=== PATIENT | male | born 1965 | race Caucasian/White ===

== ENCOUNTER 2019-12-28 10:17 | Emergency (ER) | payer MEDICARE, SELFPAY ==
--- NOTE | 2019-12-28 10:26 | ED.SKABFB ---
HPI - Skin/Abscess/Foreign Bdy General Chief complaint: Skin/Abscess/Foreign Body Stated complaint: pos skin infection Time Seen by Provider: 12/28/19 10:26 Source: patient Mode of arrival: ambulatory Limitations: no limitations History of Present Illness HPI narrative: A 54 y/o male, who is a smoker/nondrinker on sev oral meds -inc for AODM . presents to with c/o redness and swelling to his left thumb and left great toe for 10 days. Pt states that he tried to open up the area on his thumb but denies drainage from the area. Pt has a PMHx of DM and notes that he was recently on Penicillin for skin ulcers. Onset (ago): day(s) (10) Location: L hand (thumb) and L foot (great toe) Related Data Home Medications Medication Instructions Recorded Confirmed atorvastatin 20 mg PO DAILY 12/28/19 12/28/19 hydrochlorothiazide 25 mg PO DAILY 12/28/19 12/28/19 lisinopril 40 mg PO DAILY 12/28/19 12/28/19 metformin 500 mg PO BID 12/28/19 12/28/19 sertraline 100 mg PO DAILY 12/28/19 12/28/19 Allergies Allergy/AdvReac Type Severity Reaction Status Date / Time No Known Allergies Allergy Mild Unverified 12/28/19 10:25 Review of Systems Review of Systems: Narrative: General/Constitutional: Denies: weight loss,fever Eyes: Denies: Redness,discharge Ears/Nose/Throat: Denies: Epistaxis,ear discharge Respiratory: Denies: Hemoptysis Gastrointestinal: Denies: Vomiting, Bleeding-rectal Skin: Reports: swelling and redness to left thumb and left great toe; Denies: drainage Neurologic: Denies: Focal Weakness,Sz Hematologic: Denies: Petechiae/Purpura Psychiatric: Denies: Suicidal ideation All systems reviewed & are unremarkable except as noted in HPI and below PMFSH Past Medical History Medical History Depression Diabetes Diverticulitis History of open sigmoidectomy with colostomy HTN (hypertension) Pneumonia Right hand fracture Skin ulcer Surgical History Surgical History Hx of colostomy sigmoid Social History Social History (Updated 12/28/19 @ 10:45 by Duyen Vanegas Smoking status: Current every day smoker Alcohol intake: never Comments PCP: Dr. Schilling At time of signature, agree with nursing past medical, surgical, social and family history. There is no relevant family history pertinent to the presenting complaint Exam Narrative: Exam Narrative: General Appearance: Well appearing, No distress EYE: PERRLA, Conjunctiva clear Ears: External ear normal Nose: Normal nose Mouth/Throat: Normal appearing, Normal lips Neck: Supple Respiratory: Airway patent, No respiratory distress Musculoskeletal: Full ROM, Bilateral follicular changes on forearms Skin: Warm, Dry, paronychia of L great toe and thumb w/o abscess, streaking Neurological: A&O x3, CN II-X intact Psychiatric: Normal mood, Normal affect Course Vital Signs Vital signs: Vital Signs Temperature 97.8 F 12/28/19 10:29 Pulse Rate 80 12/28/19 10:29 Respiratory Rate 16 12/28/19 10:29 Blood Pressure 153/91 H 12/28/19 10:29 Pulse Oximetry 100 12/28/19 10:29 Temperature 97.8 F 12/28/19 10:29 Pulse Rate 80 12/28/19 10:29 Respiratory Rate 16 12/28/19 10:29 Blood Pressure 153/91 H 12/28/19 10:29 Pulse Oximetry 100 12/28/19 10:29 Discharge Plan Discharge Clinical Impression: Paronychia, Acute paronychia of left thumb Patient Disposition: Home, Self-Care Condition: Stable Instructions: Antibiotic Form, Paronychia (ED) Prescriptions: New clindamycin HCl 300 mg capsule 300 mg PO TID Qty: 15 RF: 0 mupirocin 2 % ointment 1 applic TOPICAL TID Qty: 30 RF: 0 No Action metformin 500 mg tablet 500 mg PO BID RF: 0 atorvastatin 20 mg tablet 20 mg PO DAILY RF: 0 sertraline 100 mg tablet 100 mg PO DAILY RF: 0 hydrochlorothiazide 25 mg tablet 25 mg PO DAILY RF
[2019-12-28 10:29] VITALS: BP 153/91; PULSE 80; RESP 16; TEMP 36.6; O2SAT 100
== END 2019-12-28 10:59 | disposition home or self-care (01) ==
PROVIDERS: Emergency Provider Emergency Medicine; PCP Family Medicine
DX: L03.012 Cellulitis of left finger (principal); F17.200 Nicotine dependence, unspecified, uncomplicated; F32.9 Major depressive disorder, single episode, unspecified; E11.9 Type 2 diabetes mellitus without complications; I10 Essential (primary) hypertension
CPT/HCPCS: 99213; G0463

== ENCOUNTER 2021-08-26 11:24 | Outpatient (CLI) | payer MEDICARE, SELFPAY ==
--- NOTE | ~2021-08-26 | XR_ITS ---
EXAMINATION: XR hand LT min 3V INDICATION: Left hand pain TECHNIQUE: Three views of the left hand are obtained. COMPARISON: None available FINDINGS: There is no fracture, dislocation, or subluxation. The bones, soft tissues, and joint space s are normal. IMPRESSION: 1. No acute osseous abnormality. Reviewed, dictated and finalized at location A.
== END 2021-08-26 11:25 | disposition home or self-care (01) ==
PROVIDERS: PCP Family Medicine; Visit Provider Family Medicine
DX: M79.642 Pain in left hand (principal)
CPT/HCPCS: 73130

== ENCOUNTER 2024-03-28 14:03 | Emergency (ER) | payer MEDICARE, SELFPAY ==
--- NOTE | ~2024-03-28 | XR_ITS ---
EXAMINATION: XR finger 3rd RT min 2V DATE: 03/28/2024 17:12 INDICATION: Laceration to tip of the right third digit after being slammed in a door. TECHNIQUE: Dorsal palmar, lateral and oblique views of the right digit were obtained COMPARISON: None FINDINGS: Nondisplaced oblique fracture extending across the tuft of the right third distal phalanx. No other f ractures identified. Joint spaces are normal. Soft tissue swelling about the third digit most promine nt distally and about the proximal interphalangeal joint. No radiopaque foreign bodies. IMPRESSION: 1. Nondisplaced fracture at the tuft of the right third distal phalanx which could be open/compound g iven the provided history of laceration in this region. Reviewed, dictated and finalized at location A. IMPRESSION: 1. Nondisplaced fracture at the tuft of the right third distal phalanx which co uld be open/compound given the provided history of laceration in this region.
[2024-03-28 14:03] VITALS: BP 185/102; PULSE 87; RESP 16; TEMP 36.8; O2SAT 99
[2024-03-28 14:40] VITALS: BP 126/72; PULSE 86; RESP 18; TEMP 36.3; O2SAT 95
--- NOTE | 2024-03-28 16:59 | ED.WOUNDLAC ---
HPI - Wound/Laceration General Chief Complaint: Wound/Laceration Stated Complaint: lac Time Seen by Provider: 03/28/24 16:12 Source: patient Mode of arrival: ambulatory Limitations: no limitations History of Present Illness HPI narrative: Patient is a 59-year-old male who presents the ED with report of a laceration to his right 3rd digit. Patient reports he accidentally slammed his finger in the hinge of a door. Sustained a laceration. Denies any other injuries. Denies numbness. Tetanus unknown. Related Data Home Medications Medication Instructions Recorded Confirmed atorvastatin 20 mg tablet 20 mg PO DAILY 12/28/19 12/28/19 hydrochlorothiazide 25 mg tablet 25 mg PO DAILY 12/28/19 12/28/19 lisinopril 40 mg tablet 40 mg PO DAILY 12/28/19 12/28/19 metformin 500 mg tablet 500 mg PO BID 12/28/19 12/28/19 sertraline 100 mg tablet 100 mg PO DAILY 12/28/19 12/28/19 Allergies Allergy/AdvReac Type Severity Reaction Status Date / Time No Known Allergies Allergy Mild Verified 03/28/24 14:05 Review of Systems Review of Systems: CONSTITUTIONAL: Denies fever, chills, or sweats. MUSCULOSKELETAL: See HPI. NEUROLOGIC: Denies headache, dizziness, numbness, or weakness. All systems reviewed & are unremarkable except as noted in HPI and below PMFSH Past Medical History Medical History Depression Diabetes Diverticulitis History of open sigmoidectomy with colostomy HTN (hypertension) Pneumonia Right hand fracture Skin ulcer Surgical History Surgical History Hx of colostomy sigmoid Social History Social History Smoking status: Current every day smoker Alcohol intake: never Exam Narrative: GENERAL: Appears older than stated age, obese with BMI of 34.2, non-toxic, in no acute distress. HEAD: Normocephalic, atraumatic. RESPIRATORY: Airway patent, respirations nonlabored. CARDIOVASCULAR: Regular rate and rhythm. Radial pulses intact bilaterally. MUSCULOSKELETAL: Moves all extremities. No gross deformities. SKIN: Warm, dry, normal color. Approximately 3 cm curvilinear laceration to right 3rd digit finger pad on flexor surface, ending next to lateral nail plate edge. No significant active bleeding. Sensation intact. NEURO: A&O X3. Speech clear. PSYCHIATRIC: Appropriate mood and affect. Normal interaction. Course Vital Signs Vital signs: Vital Signs Temperature 98.2 F 03/28/24 14:03 Pulse Rate 87 03/28/24 14:03 Respiratory Rate 16 03/28/24 14:03 Blood Pressure 185/102 H 03/28/24 14:03 Pulse Oximetry 99 03/28/24 14:03 Temperature 97.3 F L 03/28/24 14:40 Pulse Rate 86 03/28/24 14:40 Respiratory Rate 18 03/28/24 14:40 Blood Pressure 126/72 03/28/24 14:40 Pulse Oximetry 95 03/28/24 14:40 Procedures Laceration Laceration 1: Date: 03/28/24 Time: 17:45 Site: hand Side (If applicable): right (3rd digit) Size (cm): 3 Description: linear Depth: simple, single layer Local Anesthetic: other anesthetic (digital block) Pre-repair: wound explored, irrigated and irrigated extensively ====== Skin Level ====== Skin layer closed with: nylon Size (cm): 4-0 Number of sutures: 9 Technique: simple, interrupted ====== Subcutaneous Layer ====== ====== Muscle Layer ====== ====== Tendon Layer ====== Nerve Block Nerve Block 1: Nerve block date: 03/28/24 Nerve block time: 17:35 Time out performed: Yes Local Anesthetic: lidocaine 1% Amount of anesthesia used (mL): 5 Side: right (3rd digit) Nerve Blocks: digital Procedure Successful: Yes Patient Tolerated Procedure: well and no complications Complications: none MDM - Wound/Lacerat
[2024-03-28] MEDS: TETANUS,DIPHTHERIA,AC PERTUSSIS ADULT (0.5 ML) BOOSTRIX IM (17:10)
[2024-03-28] MEDS: ceFAZolin SODIUM 1 GM VIAL IM (17:59)
[2024-03-28] MEDS: WATER, STERILE FOR INJECTION 10 ML VIAL XX (18:00)
== END 2024-03-28 18:20 | disposition home or self-care (01) ==
PROVIDERS: Emergency Provider Physician Assistant; PCP Family Medicine
DX: S61.212A Laceration without foreign body of right middle finger without damage to nail, initial encounter (principal); W23.0XXA Caught, crushed, jammed, or pinched between moving objects, initial encounter; E11.9 Type 2 diabetes mellitus without complications; I10 Essential (primary) hypertension; F32.A Depression, unspecified; Z23 Encounter for immunization
CPT/HCPCS: 12002; 73140; 90471; 90715; 96372; 99283; J0690

== ENCOUNTER 2024-04-15 09:17 | Outpatient (CLI) | payer MEDICARE, SELFPAY ==
[2024-04-15 09:54] LABS: Basophils Absolute Auto 0.1 K/mm3 (0.0-0.1); Basophils Percent Auto 0.9 % (0.2-1.2); Eosinophils Absolute Auto 0.2 K/mm3 (0-0.3); Eosinophils Percent Auto 1.6 % (0-4.4); Hematocrit 48.4 % (42.0-52.0); Immature Granulocyte Absolute 0.06 K/mm3 (0.00-0.031); Immature Granulocyte Percent A 0.5 % (0-0.5); Lymphocytes Absolute Auto 1.92 K/mm3 (0.9-3.2); Lymphocytes Percent Auto 16.5 % (18.3-44.2); Mean Corpuscular HGB Conc 33.1 g/dl (32-36); Mean Corpuscular Hemoglobin 29.8 pg (26-34); Mean Corpuscular Volume 90.1 fl (80-100); Mean Platelet Volume 9.9 fl (7.4-10.4); Monocytes Absolute Auto 0.9 K/mm3 (0.1-0.6); Monocytes Percent Auto 7.4 % (2.6-8.5); Neutrophils Absolute Auto 8.5 K/mm3 (1.3-6.7); Neutrophils Percent Auto 73.1 % (45.5-73.1); Platelet Count Result 197 k/mm3 (150-375); Red Blood Count 5.37 M/mm3 (4.6-6.20); Red Cell Distribution Width 11.9 % (11.5-14.5); White Blood Count 11.6 K/mm3 (4.5-10.0)
[2024-04-15 10:04] LABS: Alanine Aminotransferase 30 U/L (6-50); Albumin Level 4.7 g/dL (3.5-5.1); Alkaline Phosphatase 82 U/L (38-126); Anion Gap 5 mmol/L (4-12); Aspartate Amino Transferase 27 U/L (17-59); Bilirubin,Total 0.6 mg/dL (0.2-1.3); Blood Urea Nitrogen 16 mg/dL (9-20); Calcium 9.1 mg/dL (8.4-10.2); Carbon Dioxide 29 mmol/L (22-30); Chloride 106 mmol/L (98-107); Cholesterol 124 mg/dL (0-200); Estimated Glomerular Filt Rate > 60; Glucose 121 mg/dL (65-110); HDL Direct 47 mg/dL; Potassium 3.6 mmol/L (3.4-5.0); Sodium 140 mmol/L (137-145); Triglycerides 86 mg/dL (<150)
[2024-04-15 10:18] LABS: LDL Cholesterol Direct 64 mg/dL
[2024-04-15 10:30] LABS: MALB Creatinine Ratio 22.2 mg/g (0-30); Microalbumin Urine Random 16.9 mg/L (0-16.7)
[2024-04-15 10:31] LABS: Free T4 Free Thyroxine 0.89 ng/mL (0.78-2.19); Vitamin D 25 Hydroxy 64.5 ng/mL
[2024-04-15 10:41] LABS: Prostate Specific Antigen 0.2 ng/mL (< OR = 4.0); Total Triiodothyronine (T3) 1.12 NG/ML (0.97-1.69)
== END 2024-04-15 09:18 | disposition home or self-care (01) ==
LOC: ANHLAB 09:19
PROVIDERS: PCP Family Medicine; Visit Provider Family Medicine
DX: M62.81 Muscle weakness (generalized) (principal); E55.9 Vitamin D deficiency, unspecified; I10 Essential (primary) hypertension; E78.5 Hyperlipidemia, unspecified; E11.9 Type 2 diabetes mellitus without complications; E03.9 Hypothyroidism, unspecified; Z12.5 Encounter for screening for malignant neoplasm of prostate
CPT/HCPCS: 36415; 80053; 80061; 82043; 82306; 84153; 84439; 84443; 84480; 85025; G0103

== ENCOUNTER 2025-02-24 10:03 | Outpatient (CLI) | payer MEDICARE, SELFPAY ==
[2025-02-24 10:20] LABS: Basophils Absolute Auto 0.1 K/mm3 (0.0-0.1); Basophils Percent Auto 0.8 % (0.2-1.2); Eosinophils Absolute Auto 0.2 K/mm3 (0-0.3); Eosinophils Percent Auto 1.9 % (0-4.4); Hematocrit 44.4 % (42.0-52.0); Hemoglobin 14.7 g/dL (14.0-18.0); Immature Granulocyte Absolute 0.08 K/mm3 (0.00-0.031); Immature Granulocyte Percent A 0.6 % (0-0.5); Lymphocytes Absolute Auto 2.96 K/mm3 (0.9-3.2); Lymphocytes Percent Auto 23.6 % (18.3-44.2); Mean Corpuscular HGB Conc 33.1 g/dl (32-36); Mean Corpuscular Hemoglobin 29.8 pg (26-34); Mean Corpuscular Volume 89.9 fl (80-100); Mean Platelet Volume 9.4 fl (7.4-10.4); Monocytes Absolute Auto 1.1 K/mm3 (0.1-0.6); Monocytes Percent Auto 8.8 % (2.6-8.5); Neutrophils Absolute Auto 8.1 K/mm3 (1.3-6.7); Neutrophils Percent Auto 64.3 % (45.5-73.1); Platelet Count Result 271 k/mm3 (150-375); Red Blood Count 4.94 M/mm3 (4.6-6.20); Red Cell Distribution Width 12.6 % (11.5-14.5); White Blood Count 12.5 K/mm3 (4.5-10.0)
[2025-02-24 10:31] LABS: Alanine Aminotransferase 26 U/L (6-50); Albumin Level 4.5 g/dL (3.5-5.1); Alkaline Phosphatase 70 U/L (38-126); Anion Gap 8 mmol/L (4-12); Aspartate Amino Transferase 25 U/L (17-59); Bilirubin,Total 0.7 mg/dL (0.2-1.3); Blood Urea Nitrogen 13 mg/dL (9-20); Calcium 9.6 mg/dL (8.4-10.2); Carbon Dioxide 30 mmol/L (22-30); Chloride 97 mmol/L (98-107); Cholesterol 128 mg/dL (0-200); Estimated Glomerular Filt Rate > 60; Glucose 160 mg/dL (65-110); HDL Direct 48 mg/dL; Potassium 3.8 mmol/L (3.4-5.0); Sodium 135 mmol/L (137-145); Triglycerides 141 mg/dL (<150)
[2025-02-24 10:41] LABS: LDL Cholesterol Direct 54 mg/dL
[2025-02-24 11:01] LABS: Prostate Specific Antigen 0.3 ng/mL (< OR = 4.0)
--- OUTSIDE RECORDS SUMMARY | 2025-02-24 11:23 | XMS_ITS | Referral Summary ---
Author Organization [facility] Address [address] [place] [address] Care Team Providers Care Coach Operator Name Role Phone Carroll Schilling MD Primary Care Provider [phone] Joe Almanza MD Unavailable [phone] Allergies Active Allergy Reactions Criticality Noted Date Comments Adhesive Blisters High 01/11/2021 Medications metformin HCl (METFORMIN ORAL) Take 500 mg by mouth 2 (two) times a day Active atorvastatin calcium (LIPITOR ORAL) Take 20 mg by mouth daily Active HYDROCHLOROTHIA ZIDE ORAL Take 25 mg by mouth daily Active sertraline HCl (SERTRALINE ORAL) Take 100 mg by mouth daily Active lisinopriL (PRINIVIL,ZESTR IL) 10 mg tablet Take 10 mg by mouth daily Active metoprolol tartrate (LOPRESSOR) 25 mg immediate release tablet Take 25 mg by mouth daily Active HYDROcodone-yesenia taminophen (NORCO) 5-325 mg per tabletIndicatio ns:Pain Take 1-2 tablets by mouth every 4 (four) hours as needed for pain Max 10 Pills/day 40 tablet 01/14/2021 Active docusate sodium (COLACE) 100 mg capsuleIndicati ons:constipatio n,TAKE WHILE ON NARCOTICS OR IF CONSTIPATED. STOP IF DIARRHEA OR LOOSE STOOLS Take 1 capsule (100 mg total) by mouth 2 (two) times a day 15 capsule 01/14/2021 Active Active Problems Problem Noted Date Diagnosed Date Hypertension 01/11/2021 Depression 01/11/2021 Anxiety 01/11/2021 Type 2 diabetes mellitus, wi thout long-term current use of insulin 01/11/2021 History of diverticulitis 01/11/2021 Obesity 01/11/2021 Bilateral inguinal hernia without obstruction or gangrene 12/30/2020 Incisional hernia with obstruction but no gangre ne 02/15/2017 Overview (03/31/2017): Incisional hernia with obstruction but no gangrene Social History Tobacco Use Types Packs/Day Years Used Date Smoking Tobacco: Every Day Cigarettes 1.5 20 Smokeless Tobacco: Never Tobacco Cessation:Ready to Q uit: No; Counseling Given: Yes AUDIT-C Answer Date Recorded Q1: How often do you have a drink containing alc ohol? Never 01/11/2021 Average Number of Drinks Not on file 021 Q3: How often do you have si x or more drinks on one occasion? Never 01/11/2021 Sex and Gender Information Value Date Recorded Sex Assigned at Not on file Legal Sex Male 1:13 PM SOLAR SITE ASSESSMENT SPECIALIST Gender Identity Not on file Sexual Orientation Not on file Last Filed Vital Signs Vital Sign Reading Time Taken Comments Blood Pressure 150/83 01/14/2021 1:20 PM SOLAR SITE ASSESSMENT SPECIALIST Pulse 59 01/14/2021 1:20 PM SOLAR SITE ASSESSMENT SPECIALIST Temperature 37.2 C (98.9 F) 01/14/2021 12:09 PM SOLAR SITE ASSESSMENT SPECIALIST Respiratory Rate 16 01/14/2021 1:20 PM SOLAR SITE ASSESSMENT SPECIALIST Oxygen Saturation 96% 01/14/2021 1:20 PM SOLAR SITE ASSESSMENT SPECIALIST Inhaled Oxygen Concentration - - Weight 92.1 kg (203 lb) 02/02/2021 11:42 AM CDT Height 170.2 cm (5' 7 ) 02/02/2021 11:42 AM CDT Body Mass Index 31.79 02/02/2021 11:42 AM CDT Plan of Treatment Not on file Medical Devices Implanted Type Area Auditor Supervisor Device Identifier Shelf Expiration Date Model / Serial / Lot Eth[employer] Endo Surgery Phse Prolene 3 15/16in .75in 4 15/16inx2 5/32inx.5in Soft Knit Extend - Snonr - [id number] Implanted:Qty: 1 on 01/14/2021 by Joe Almanza MD at [facility] Mesh Right: Groin [employer] Endo Surgery 06/05/2025 PHSE / NONR / [id number] [employer] Endo Surgery Phse Prolene 3 15/16in .75in 4 15/16inx2 5/32inx.5in Soft Knit Extend - Snone - [id number] Implanted:Qty: 1 on 01/14/2021 by Joe Almanza MD at [facility] Mesh Left: Groin [employer] Endo Surgery 10/05/2025 PHSE / NONE / [id number] Insurance [employer] CHO[employer] MEDICARE PPO Care Teams Coach Operator Relationship Specialty Start Date End Date Carroll Schilling MD PCP - General Family Medicine 12/30/20 Joe Amlanza MD Consulting Physician General Surgery 01/14/21
--- OUTSIDE RECORDS SUMMARY | 2025-02-24 11:23 | XMS_ITS | CONTINUITY OF CARE DOCUMENT ---
Author Name irving villatoro Address Unknown Organization [facility] Address [address] [place] [address] Phone [phone] Care Team Providers Care Entry Level Financial Analyst Name Role Phone Doug Armenta MD Unavailable FRANCISCA MCKENNA, ARLENE Pena Unavailable [phone] INSURANCE PROVIDERS Payer name Policy type / Coverage type [employer] red constitution party ID [place] MEDICARE Medicare [id number]
--- OUTSIDE RECORDS SUMMARY | 2025-02-24 11:23 | XMS_ITS | Clinical Summary ---
Author Organization [facility] Address [address] [place] [address] Care Team Providers Care Mysql Database Developer Name Role Phone Carroll Schilling MD Primary Care Provider [phone] Joe Almanza MD Unavailable [phone] Allergies Active Allergy Reactions Criticality Noted [...] Incisional hernia with obstruction but no gangrene Surgical History Surgery Date Site/Laterality Comments EXPLORATORY LAPAROTOMY W/ BOWEL RESECTION REVISION / TAKEDOWN COLOSTOMY HERNIA REPAIR CHOLECYSTECTOMY Social History Tobacco Use Types Packs/Day Years [...] on file Legal Sex Male 1:13 PM BARREL CLEANER Gender Identity Not on file Sexual Orientation Not on file Obstetrics History Last Filed Vital Signs Vital Sign Reading Time Taken Comments Blood Pressure 150/83 01/14/2021 1:20 PM BARREL CLEANER Pulse 59 01/14/2021 1:20 PM BARREL CLEANER Temperature 37.2 C (98.9 F) 01/14/2021 12:09 PM BARREL CLEANER Respiratory Rate 16 01/14/2021 1:20 PM BARREL CLEANER Oxygen Saturation 96% 01/14/2021 1:20 PM BARREL CLEANER Inhaled Oxygen Concentration - - Weight 92.1 kg (203 lb) 02/02/2021 11:42 AM CDT Height 170.2 cm (5' 7 ) 02/02/2021 11:42 AM CDT Body Mass Index 31.79 02/02/2021 11:42 AM CDT Plan of Treatment Not on file Medical Devices Implanted Type Area Dairy And Food Laboratory Assistant Device Identifier Shelf Expiration Date Model / Serial / Lot Ethicon Endo Surgery Phse Prolene 3 15/16in .75in 4 15/16inx2 5/32inx.5in Soft Knit Extend - Snonr - [id number] Implanted:Qty: 1 on 01/14/2021 by Joe Almanza MD at [facility] Mesh Right: Groin [employer] Endo Surgery 06/05/2025 PHSE / NONR / [id number] [employer] Endo Surgery Phse Prolene 3 15/16in .75in 4 15/16inx2 5/32inx.5in Soft Knit Extend - Snone - [id number] Implanted:Qty: 1 on 01/14/2021 by Joe Almanza MD at [facility] Mesh Left: Groin [employer] Endo Surgery 10/05/2025 PHSE / NONE / [id number] Insurance [employer] MEDICARE PPO Care Teams Mysql Database Developer Relationship Specialty Start Date End Date Carroll Schilling MD PCP - General Family Medicine 12/30/20 Joe Almanza MD Consulting Physician General Surgery 01/14/21
[2025-02-24 11:38] LABS: Hepatitis C Virus Antibody Negative (Negative)
== END 2025-02-24 10:04 | disposition home or self-care (01) ==
PROVIDERS: PCP Family Medicine; Visit Provider Family Medicine
DX: E78.5 Hyperlipidemia, unspecified (principal); I10 Essential (primary) hypertension; E11.9 Type 2 diabetes mellitus without complications; Z11.59 Encounter for screening for other viral diseases; Z12.5 Encounter for screening for malignant neoplasm of prostate
CPT/HCPCS: 36415; 80053; 80061; 84153; 85025; 86803; G0103